=== PATIENT | female | born 1970 | race Caucasian/White ===

== ENCOUNTER 2020-11-08 13:08 | Emergency (ER) | payer SELFPAY ==
[~2020-11-08] VITALS: Ht 170.2 cm; Wt 61.4 kg
[2020-11-08 13:50] VITALS: BP 125/80
[2020-11-08 13:57] LABS: BASO % 0 % (0-3); EOS # 0.5 x10^3/uL (0.0-0.7); EOS % 7 % (0-3); HEMOGLOBIN 9.6 g/dL (12.0-15.5); LYMPH # 1.7 x10^3/uL (1.0-4.8); LYMPH % 27 % (24-48); MEAN CORPUSCULAR HEMOGLOBIN 22 pg (25-35); MEAN CORPUSCULAR HGB CONC 31 g/dL (31-37); MEAN CORPUSCULAR VOLUME 69 fL (79-100); MONO # 0.7 x10^3/uL (0.0-1.1); MONO % 11 % (0-9); NEUT # 3.4 x10^3uL (1.8-7.7); NEUT % 54 % (31-73); PLATELET COUNT 314 x10^3/uL (140-400); RED BLOOD COUNT 4.48 x10^6/uL (3.50-5.40); RED CELL DISTRIBUTION WIDTH 20.8 % (11.5-14.5); WHITE BLOOD COUNT 6.4 x10^3/uL (4.0-11.0)
[2020-11-08 14:07] LABS: CALCIUM 7.8 mg/dL (8.5-10.1); CREATININE 0.7 mg/dL (0.6-1.0); GFR 89.3; PREG TEST PT QUAL NEGATIVE (NEG)
--- NOTE | 2020-11-08 14:08 | PHYS DOC ---
General Adult EDM: Chief Complaint: CHEST PAIN HPI: HPI: Patient is a 49-year-old female who presents with intermittent chest pain, shortness of breath, dizziness for 1 week. Patient describes chest pain as a sharp, squeezing pain that comes and goes. Patient also reports she has noticed blood in her stool that started this morning. Denies abdominal pain. "I feel like my stomach is felt bloated for the last couple of months". Patient has a history of PEs, DVTs, diabetes. Patient is on Eliquis. Patient reports smoking 1 pack a day, daily drinker. Patient states "I used cocaine last night for the first time". Denies any other drug use. (SHABANA SCHMIDT APRN) Review of Systems: Review of Systems: Constitutional: Denies fever or chills Eyes: Denies change in visual acuity HENT: Reports nasal congestion, sneezing Respiratory: Reports cough and shortness of Cardiovascular: Reports intermittent, chest pain GI: Reports abdominal bloating, denies nausea/vomiting/diarrhea. Reports blood in stool : Denies dysuria Musculoskeletal: Denies back pain or joint pain Integument: Denies rash Neurologic: Denies headache, focal weakness or sensory changes Endocrine: Denies polyuria or polydipsia Lymphatic: Denies swollen glands Psychiatric: Denies depression or anxiety (SHABANA SCHMIDT APRN) Allergies: Allergies: Allergies Coded Allergies Type Severity Reaction Last Updated Verified No Known Drug Allergies 11/08/20 No (SHABANA SCHMIDT APRN) Physical Exam: PE: Constitutional: Well developed, well nourished, no acute distress, non-toxic appearance. [] HENT: Normocephalic, atraumatic, bilateral external ears normal, oropharynx moist, no oral exudates, nose normal. [] Eyes: PERRLA, EOMI, conjunctiva normal, no discharge. [] Neck: Normal range of motion, no tenderness, supple, no stridor. [] Cardiovascular:Heart rate regular rhythm, no murmur [] Lungs & Thorax: Bilateral breath sounds clear to auscultation [] Abdomen: Bowel sounds normal, soft, no tenderness Skin: Warm, dry, no erythema, no rash. [] Back: No tenderness, no CVA tenderness. [] Extremities: No tenderness, no cyanosis, no clubbing, ROM intact, no edema. [] Neurologic: Alert and oriented X 3, normal motor function, normal sensory function, no focal deficits noted. [] Psychologic: Affect normal, judgement normal, mood normal. [] (SHABANA SCHMIDT APRN) Current Patient Data: Labs: Laboratory Tests Test 11/08/20 13:36 White Blood Count 6.4 x10^3/uL (4.0-11.0) Red Blood Count 4.48 x10^6/uL (3.50-5.40) Hemoglobin 9.6 g/dL (12.0-15.5) L Hematocrit 31.0 % (36.0-47.0) L Mean Corpuscular Volume 69 fL (79-100) L Mean Corpuscular Hemoglobin 22 pg (25-35) L Mean Corpuscular Hemoglobin Concent 31 g/dL (31-37) Red Cell Distribution Width 20.8 % (11.5-14.5) H Platelet Count 314 x10^3/uL (140-400) Neutrophils (%) (Auto) 54 % (31-73) Lymphocytes (%) (Auto) 27 % (24-48) Monocytes (%) (Auto) 11 % (0-9) H Eosinophils (%) (Auto) 7 % (0-3) H Basophils (%) (Auto) 0 % (0-3) Neutrophils # (Auto) 3.4 x10^3uL (1.8-7.7) Lymphocytes # (Auto) 1.7 x10^3/uL (1.0-4.8) Monocytes # (Auto) 0.7 x10^3/uL (0.0-1.1) Eosinophils # (Auto) 0.5 x10^3/uL (0.0-0.7) Basophils # (Auto) 0.0 x10^3/uL (0.0-0.2) Platelet Estimate Pending (SHABANA SCHMIDT APRN) EKG: EKG: [] Sinus rhythm. Heart rate 79 bpm. Intervals normal. [place] normal. No STEMI. Read by Dr. Barajas at 1327 (SHABANA SCHMIDT APRN) Radiology/Procedures: Radiology/Procedures: [] Single view chest dated 11/08/2020 2:17 PM: COMPARISON: None Clinical Indication: Shortness of breath. Findings: Single upright portable exam of the chest was performed. Heart size and mediastinal contours are within normal limits. Lungs are clear. No consolidation or pleural effusion. No pneumothorax. IMPRESSION: No acute radiographic abnormality. Electronically signed by: Alexander Alfaro MD (11/08/2020 2:17 PM) [id number] Examination: CT of the abdomen pelvis without contrast HISTORY: History of abdominal bloating, blood in the stools COMPARISON: None available TECHNIQUE: Axial CT images of the abdomen pelvis were performed without contrast. Coronal and sagittal reformats are performed. Exposure: One or more of the following individualized dose reduction techniques were utilized for this examination: 1. Automated exposure control 2. Adjustment of the mA and/or kV according to patient size 3. Use of iterative reconstruction technique FINDINGS: There is a 5 mm nodule right lower lobe of the lung. No evidence of free air identified in the abdomen. The evaluation of the solid organs is limited due to lack of IV contrast. The evaluation of bowel is limited lack of oral contrast. The visualized noncontrasted liver, spleen, adrenals grossly appears unremarkable. The gallbladder is contracted. The stomach is mildly distended. The small bowel is nondilated. Feces and gas noted in the colon. The appendix is normal. Urinary bladder is mildly distended Multiple bilateral intrarenal collecting system calculi identified with the largest measuring 4.5 mm in the right kidney. No evidence of hydronephrosis. No evidence of lytic bony destructive lesion. IMPRESSION: 1. Multiple bilateral intrarenal collecting system calculi identified with the largest measuring 4.5 mm in the right kidney. No evidence of hydronephrosis. 2. 5 mm nodule right lower lobe of the lung. Follow-up per Fleischner Society guidelines with a follow-up CT in 6-12 months. Electronically signed by: Zhou Moody MD (11/08/2020 3:18 PM) [id number] (SHABANA SCHMIDT APRN) Heart Score: C/O Chest Pain: Yes HEART Score for Chest Pain: HEART Score for Chest Pain Response (Comments) Value History Moderately Suspicious 1 ECG Normal 0 Age >45 - < 65 1 Risk Factors 1 or 2 Risk Factors 1 Troponin < Normal Limit 0 Total 3 Risk Factors: Risk Factors: DM, Current or recent (<one month) smoker, HTN, HLP, family history of CAD, obesity. Risk Scores: Score 0 - 3: 2.5% MACE over next 6 weeks - Discharge Home Score 4 - 6: 20.3% MACE over next 6 weeks - Admit for Clinical Observation Score 7 - 10: 72.7% MACE over next 6 weeks - Early Invasive Strategies (SHABANA SCHMIDT APRN) Course & Med Decision Making: Course & Med Decision Making Pertinent Labs and Imaging studies reviewed. (See chart for details) []-year-old female presents with intermittent chest pain, shortness of breath and dizziness for a week. Chest x-ray was negative for any acute abnormalities. Vitals are within normal limits and nonconcerning. Patient does have a history of PEs but currently on Eliquis. Troponin was negative. Heart score of 3. Suspicion of cardiac event is low. Patient also reports blood in her stool. Hemoglobin was 9.6. CT of abdomen and pelvis did show a 5 mm nodule in her right lower lobe of her lung. Guidelines suggest following up in 6 to 12 months. Patient given referral for [facility] due to lack of insurance and PCP. Patient is reporting she has been out of her Metformin for about a year. Patient given a prescription for 30-day supply of Metformin while in the emergency room. Discussed lab and CT results with patient. Patient will need to make a follow-up appointment for further evaluation and possible GI consult. (SHABANA SCHMIDT APRN) Dragon Disclaimer: Dragon Disclaimer: This electronic medical record was generated, in whole or in part, using a voice recognition dictation system. (SHABANA SCHMIDT APRN) Attending Co-Sign The patient was seen and interviewed as well as examined at the bedside. The chart was reviewed. The case was discussed. Agree with the plan of care. (AG BARAJAS DO) Departure Departure: Impression: Primary Impression: Chest pain Qualified Codes: R07.89 - Other chest pain Additional Impressions: Blood in stool Dyspnea Qualified Codes: R06.00 - Dyspnea, unspecified History of pulmonary embolus (PE) Disposition: HOME / SELF CARE / HOMELESS Condition: STABLE Referrals: PCP,NO (PCP) Patient Instructions: Chest Pain (Nonspecific), [id number] Additional Instructions: You are seen in the emergency room for chest pain, shortness of breath, blood in your stools. Your hemoglobin was slightly decreased but still within approp riate range. I am providing you with [facility] phone number so that you can call and get an appointment with the PCP. Is important for you to follow-up. All of your other labs were unremarkable. Please return emergency room if you have worsening symptoms or concerns. EMERGENCY DEPARTMENT GENERAL DISCHARGE INSTRUCTIONS Thank you for coming to [facility] (ED) today and trusting us with you care. We trust that you had a positivie experience in our Emergency Department. If you wish to speak to the department management, you may call the director at [phone]. YOUR FOLLOW UP INSTRUCTIONS ARE FOLLOWS: 1. Do you have a private Doctor? If you do not have a private doctor, please ask for a resource list of physicians or clinics that may be able to assist you with follow up care. 2. The Emergency Physician has interpreted your x-rays. The X-Ray specialist will also review them. If there is a change in the findings, you will be notified in 48 hours when at all possible. 3. A lab test or culture has been done, your results will be reviewed and you will be notified if you need a change in treatment. ADDITIONAL INSTRUCTIONS AND INFORMATION: 1. Your care today has been supervised by a physician who is specially trained in emergency care. Many problems require more than one evaluation for a complete diagnosis and treatment. We recommend that you schedule your follow up appointment as recommended to ensure complete treatment of you illness or injury. If you are unable to obtain follow up care and continue to have a problem, or if your condition worsens, we recommend that you return to the ED. 2. We are not able to safely determine your condition over the phone nor are we able to give sound medical advice over the phone. For these safety reasons, if you call for medical advice we will ask you to come to the ED for further evaluation. 3. If you have any questions regarding these discharge instructions please call the ED at [phone]. SAFETY INFORMATION: In the interest of safety, wellness, and injury prevention; we encourage you to wear your sealbelt, if you smoke; quite smoking, and we encourage family to use a protective helmet for bicycling and other sporting events that present an increased risk for head injury. IF YOUR SYMPTOMS WORSEN OR NEW SYMPTOMS DEVELOP, OR YOU HAVE CONCERNS ABOUT YOUR CONDITION; OR IF YOUR CONDITION WORSENS WHILE YOU ARE WAITING FOR YOUR FOLLOW UP APPOINTMENT; EITHER CONTACT YOUR PRIMARY CARE DOCTOR, THE PHYSICIAN WHOSE NAME AND NUMBER YOU WERE GIVEN, OR RETURN TO THE ED IMMEDIATELY. Scripts Metformin Hcl (METFORMIN HCL) 500 Mg Tablet 1 TAB PO BID for diabetes, #60 TAB 3 Refills Prov: SHABANA SCHMIDT APRN 11/08/20 SHABANA SCHMIDT APRN Nov 08, 2020 14:08 AG BARAJAS DO Nov 09, 2020 06:38
[2020-11-08] MEDS ORDERED: IV NORMAL SALINE 1,000ML 1,000 ML IV ONE (14:15)
--- NOTE | 2020-11-08 14:15 | EKG ---
[address] [address] Test Date: 2020-11-08 Test Time: 13:23:25 Pat Name: ANANT RUBIO Department: Room: Gender: F Gasket Former: ASHANTI : 1970 Requested By: SHABANA SCHMIDT Order Number: [id number] Reading MD: Measurements Intervals [place] Rate: 79 P: 30 DE: 166 QRS: 14 QRSD: 72 T: 25 QT: 394 QTc: 453 Interpretive Statements SINUS RHYTHM NORMAL ECG RI6.02 No previous ECG available for comparison
[2020-11-08 14:18] LABS: ALBUMIN 3.3 g/dL (3.4-5.0); ALBUMIN/GLOBULIN RATIO 0.8 (1.0-1.7); MAGNESIUM 1.9 mg/dL (1.8-2.4); TOTAL BILIRUBIN 0.3 mg/dL (0.2-1.0); TOTAL PROTEIN 7.5 g/dL (6.4-8.2)
--- NOTE | 2020-11-08 14:19 | RAD ---
Single view chest dated 11/08/2020 2:17 PM: COMPARISON: None Clinical Indication: Shortness of breath. Findings: Single upright portable exam of the chest was performed. Heart size and mediastinal contours are with in normal limits. Lungs are clear. No consolidation or pleural effusion. No pneumothorax. IMPRESSION: No acute radiographic abnormality. Electronically signed by: Alexander Alfaro MD (11/08/2020 2:17 PM) [id number]
[2020-11-08 14:23] LABS: POTASSIUM 4.6 mmol/L (3.5-5.1)
[2020-11-08 15:02] LABS: PLT ESTIMATE ADEQUATE (ADEQUATE)
[2020-11-08 15:03] LABS: ANISOCYTOSIS MOD; HYPOCHROMIA MOD; MICROCYTOSIS MARKED
--- NOTE | 2020-11-08 15:20 | RAD ---
Examination: CT of the abdomen pelvis without contrast HISTORY: History of abdominal bloating, blood in the stools COMPARISON: None available TECHNIQUE: Axial CT images of the abdomen pelvis were performed without contrast. Coronal and sagitta l reformats are performed. Exposure: One or more of the following individualized dose reduction techniques were utilized for thi s examination: 1. Automated exposure control 2. Adjustment of the mA and/or kV according to patient size 3. Use of iterative reconstruction technique FINDINGS: There is a 5 mm nodule right lower lobe of the lung. No evidence of free air identified in the abdome n. The evaluation of the solid organs is limited due to lack of IV contrast. The evaluation of bowel is limited lack of oral contrast. The visualized noncontrasted liver, spleen, adrenals grossly appear s unremarkable. The gallbladder is contracted. The stomach is mildly distended. The small bowel is no ndilated. Feces and gas noted in the colon. The appendix is normal. Urinary bladder is mildly distend ed Multiple bilateral intrarenal collecting system calculi identified with the largest measuring 4.5 mm in the right kidney. No evidence of hydronephrosis. No evidence of lytic bony destructive lesion. IMPRESSION: 1. Multiple bilateral intrarenal collecting system calculi identified with the largest measuring 4.5 mm in the right kidney. No evidence of hydronephrosis. 2. 5 mm nodule right lower lobe of the lung. Follow-up per Fleischner Society guidelines with a foll ow-up CT in 6-12 months. Electronically signed by: Zhou Moody MD (11/08/2020 3:18 PM) [id number]
[2020-11-08 15:52] LABS: BARBITURATES NEG (NEG); BENZODIAZEPINES NEG (NEG); CANNABINOIDS NEG (NEG); COCAINE POS (NEG); METHADONE NEG (NEG); OPIATES NEG (NEG); PHENCYCLIDINE NEG (NEG)
[2020-11-08 15:59] LABS: AMPHETAMINE/METHAMPHETAMINE NEG (NEG)
[2020-11-08 16:05] LABS: BILIRUBIN,URINE NEG (NEG); CLARITY,URINE CLEAR; COLOR,URINE STRAW; GLUCOSE,URINE NEG (NEG); NITRITE,URINE NEG (NEG); UROBILINOGEN,URINE 0.2 mg/dL (0.2 mg/dL)
[2020-11-08 16:06] LABS: BACTERIA,URINE 0 /HPF (0-FEW); WBC,URINE 0 /HPF (0-4)
[2020-11-08 16:07] LABS: SQUAMOUS EPITHELIAL CELL,UR FEW /LPF
[2020-11-08] MEDS ORDERED: METF500T16 PO (16:26)
== END 2020-11-08 16:42 | disposition home or self-care (01) ==
LOC: ER 13:08
DX: R07.89 Other chest pain (principal); K92.1 Melena; R06.00 Dyspnea, unspecified; Z86.711 Personal history of pulmonary embolism
CPT/HCPCS: 36415; 71045; 74176; 80053; 80307; 81001; 83735; 83880; 84484; 84703; 85025; 85610; 85730; 93005; 96360; 99285; J7030